=== PATIENT | male | born 1965 | race African-American/Black ===

== ENCOUNTER 2017-12-07 01:40 | Inpatient (IN) | payer OTHER ==
[~2017-12-07] VITALS: Ht 175.3 cm; Wt 73.9 kg
[~2017-12-07 01:40] MED LIST: ASPIRIN EC81 M1 PO; CRESTOR20 M2 PO; DEXAMETHASONE1 M1 PO; DOXYCYCLINE HY100 M2 PO; LANTUS SOL100 UNIT/1 SC; MORPHINE SULFAT15 M4 PO; MORPHINE SULFAT30 M7 PO; NEUPOGEN300 MCG/01 IV; NOVOLOG100 UNIT/2 SC; OXYCODONE HCL5 M1 PO; VALACYCLOVIR500 M1 PO; VITAMIN D31000 UNI2 PO
[2017-12-07 01:59] LABS: HEMATOCRIT 23.8 % (42-52); MEAN CORPUSCULAR HGB CONC 36.3 G/DL (33.0-37.0); MEAN CORPUSCULAR VOLUME 82.8 FL (80.0-94.0); MEAN PLATELET VOLUME 7.5 FL (7.4-10.4); RBC DISTRIBUTION WIDTH 15.2 % (11.5-14.5); RED BLOOD CELL CT 2.87 /CUMM (4.70-6.10)
--- NOTE | 2017-12-07 02:06 | ED GENERAL ADULT ---
History of Present Illness General Chief Complaint: Altered Mental Status Stated Complaint: ALTERED MENTAL STATUS Source: family Exam Limitations: confusion, poor historian Vital Signs & Intake/Output Vital Signs & Intake/Output Vital Signs Date Time Temp Pulse Resp B/P B/P Pulse O2 O2 Flow FiO2 Mean Ox Delivery Rate 12/07 0344 83 20 123/60 99 12/07 0201 98.1 113 22 121/55 98 Room Air Allergies Coded Allergies: oxycodone (Intermediate, CONFUSION, UNEASY 11/13/15) Reconcile Medications Aspirin (Ecotrin*) 81 MG TABLET.DR 1 TAB PO DAILY BLOOD THINNER (Reported) Cholecalciferol (Vitamin D3) 1,000 UNIT TABLET 2 TAB PO DAILY SUPPLEMENT ( Reported) Dexamethasone 1 MG TABLET 20 TAB PO MULTIPLE MYELOMA (Reported) Reason to Stop at ADM: GETS IT friday AND friday ONLY Doxycycline Hyclate 100 MG CAPSULE 1 TAB PO BID ASNAPLASMOSIS TAKE ONE TONIGHT THEN CONTINUE 1 TAB PO BID X 7 DAYS Filgrastim (Neupogen) 300 MCG/0.5 ML SYRINGE 300 MCG IV NEUTROPENIA ( Reported) START ON Friday11/22/15 Insulin Aspart (Novolog) 100 UNIT/1 ML VIAL 5 UNITS SC TIDAC DIABETES ( Reported) Insulin Glargine,Hum.rec.anlog (Lantus Solostar) 100 UNIT/1 ML INSULN.PEN 25 UNIT SC QPM DIABETES (Reported) Reason to Stop at ADM: ON LEVEMIR Morphine Sulfate 30 MG TABLET 1 TAB PO BID PAIN (Reported) Morphine Sulfate 15 MG TABLET 1 TAB PO Q4 PRN BREAKTHROUGH PAIN (Reported) Reason to Stop at ADM: PATIENT HARDLY EVER TAKES IT Oxycodone HCl 5 MG TABLET 1 TAB PO Q6 PRN BREAKTHROUGH PAIN (Reported) Rosuvastatin Calcium (Crestor) 20 MG TABLET 1 TAB PO DAILY CHOLESTEROL ( Reported) Valacyclovir HCl (Valacyclovir) 500 MG TABLET 1 TAB PO BID PROPHYLAXIS ( Reported) Triage Note: PT ARRIVES VIA EMS UNRESPONSIVE "ALTERED PER " PT HX OF MULTIPLE MYELOMA WITH POOR PROGNOSIS, TODAY MUCH LESS ACTIVE SAT ON COUCH ALL DAY AND TONIGHT SLIPPED OFF COUCH, D/T UNRESPONSIVENESS UPON ARRIVAL VSS BUT UNRESPONSIVE TO STERNAL, VERBAL TACTILE STIMULI, BUT DID WITHDRAW WITH EAR PROBE OF THERMOMETER. Triage Nurses Notes Reviewed? yes Onset: Abrupt Duration: hour(s): Timing: recent history HPI: 12/07/17 4:30 AM 52-year-old man with a past medical history of multiple myeloma resents with lethargy. No fever. His says he's been so weak he can't get off the couch. Past History Travel History Traveled to [place] past 21 day No Medical History Any Pertinent Medical History? 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 No Review of Systems Review of Systems Constitutional: Denies: fever. EENTM: Reports: no symptoms. Respiratory: Denies: short of breath. Cardiovascular: Denies: chest pain. GI: Denies: abdominal pain. Genitourinary: Reports: no symptoms. Musculoskeletal: Reports: no symptoms. Skin: Reports: see HPI. Neurological/Psychological: Reports: see HPI. Hematologic/Endocrine: Reports: no symptoms. Physical Exam Physical Exam General Appearance: awake, anxious, severe distress Head: atraumatic, normal appearance Eyes: Bilateral: normal appearance, PERRL, EOMI. Ears, Nose, Throat: normal pharynx, normal ENT inspection Neck: normal inspection, supple Respiratory: normal breath sounds, no respiratory distress Cardiovascular: regular rate/rhythm Peripheral Pulses: 4+ radial (R), 4+ radial (L) Gastrointestinal: non-tender Back: decreased range of motion Extremities: CACHECTIC Neurologic/Psych: awake Skin: DRY Core Measures ACS in differential dx? No CVA/TIA Diagnosis: No Sepsis Present: Yes Sepsis Focused Exam Completed? No Progress Differential Diagnoses I considered the following diagnoses in my evaluation of the patient: [ Dehydration, anemia, sepsis] Plan of Care: Orders Procedure Date/time Status Nothing by Mouth 12/07 B Active Pathway - chart 12/07 624 Active CBC WITHOUT DIFFERENTIAL 12/07 599 Active BASIC ELECTROLYTES PLUS BUN&CR 07/01 0600 Active AMMONIA LEVEL 12/07 0600 Active Add-on Test (ER Only) 12/07 0550 Active LACTIC ACID 12/07 0508 Active Add-on Test (ER Only) 12/07 0506 Active URINE DRUGS OF ABUSE 12/07 0506 Complete Add-on Test (ER Only) 12/07 0459 Active Hemoccult 12/07 0459 Active FingerStick- Glucose 12/07 0459 Active Intake & Output 12/07 0456 Active Admit to inpatient 12/07 0455 Active Patient Data 12/07 0455 Active Vital Signs 12/07 0455 Active Code Status 12/07 0455 Active Add-on Test (ER Only) 12/07 0429 Active Saline Lock 12/07 0208 Active Add-on Test (ER Only) 12/07 0208 Active CULTURE,URINE 12/07 0208 Active BLOOD CULTURE 12/07 0208 Active URINALYSIS 12/07 0208 Complete EKG 12/07 0208 Active PROTHROMBIN TIME 12/07 0150 Complete LACTIC ACID 12/07 0150 Active ETHANOL 12/07 0150 Active D-DIMER 12/07 0150 Complete TROPONIN LEVEL 12/07 0148 Active AMMONIA 12/07 0148 Active COMPREHENSIVE METABOLIC PANEL 12/07 0148 Active CBC WITHOUT DIFFERENTIAL 12/07 0148 Complete TYPE & SCREEN (NOT X-MATCH) 12/07 0148 Active VTE Mechanical Prophylaxis 12/07 UNK Active NIH Stroke Scale 12/07 UNK Active Current Medications Sig/Dev Start time Last Medication Dose Stop Time Status Admin Insulin Human Regular 0 Q6 12/07 1200 UNVr (NovoLIN R) Lactulose 1 BOT Q6 12/07 0646 UNVr (Lactulose Enema (Pom Only)) Sodium Chloride 1,000 ML Q20H 12/07 0630 AC (Normal Saline 0.9%) Laboratory Tests 12/07/17 0620: Lactic Acid Pending 12/07/17 0620: Sodium Pending, Potassium Pending, Chloride Pending, Carbon Dioxide Pending, Anion Gap Pending, BUN Pending, Creatinine Pending, BUN/Creatinine Ratio Pending , Ammonia Pending, CBC w Diff Pending, WBC Pending, RBC Pending, Hgb Pending, Hct Pending, MCV Pending, MCH Pending, MCHC Pending, RDW Pending, Plt Count Pending, MPV Pending, Gran % Pending, Lymphocytes % Pending, Monocytes % Pending , Eosinophils % Pending, Basophils % Pending, Absolute Granulocytes Pending, Absolute Lymphocytes Pending, Absolute Monocytes Pending, Absolute Eosinophils Pending, Absolute Basophils Pending 12/07/17 0545: Urine Opiates Screen > 4000.00 H, Methadone Screen < 40, Barbiturate Screen < 60, Ur Phencyclidine Scrn < 6.00, Amphetamines Screen < 100, U Benzodiazepines Scrn < 85, Urine Cocaine Screen < 50, Urine Cannabis Screen < 5.00, Urinalysis LIGHT H, Urine Color YEL, Urine Clarity CLEAR, Urine pH 7.5, Ur Specific [place] 1.020, Urine Protein 30 H, Urine Ketones 15 H, Urine Nitrite NEG, Urine Bilirubin NEG, Urine Urobilinogen 1.0, Ur Leukocyte Esterase NEG, Ur Microscopic SEDIMENT EXAMINED, Urine RBC 1-3, Urine WBC 1-3 H, Ur Epithelial Cells FEW, Urine Crystals 1+ CA OX H, Urine Bacteria RARE H, Hyaline Casts 1-3 H, Urine Mucus MANY H, Urine Hemoglobin NEG, Urine Glucose NEG 12/07/17 0208: Lactic Acid Cancelled 12/07/17 0150: Anion Gap 11, Estimated GFR > 60, BUN/Creatinine Ratio 12.5, Glucose 210 H, Lactic Acid Pending, Calcium 10.6 H, Total Bilirubin 0.8, AST 15 L, ALT 22, Alkaline Phosphatase 144 H, Ammonia 92 H, Troponin I < 0.01, Total Protein 5.5 L, Albumin 3.3 L, Globulin 2.2, Albumin/Globulin Ratio 1.5, PT 13.3 H, INR 1.22 H, D-Dimer High Sensitivty < 200, CBC w Diff MAN DIFF ORDERED, RBC 2.87 L , MCV 82.8, MCH 30.0, MCHC 36.3, RDW 15.2 H, MPV 7.5, Segmented Neutrophils 55, Band Neutrophils 2, Lymphocytes 38, Monocytes 3, Eosinophils 2, Platelet Estimate DECREASED, Normocytic RBCs VERIFIED, Normochromic RBCs VERIFIED, Poikilocytosis 1+, Serum Alcohol < 10.0 Microbiology 12/08 619 BLOOD: Blood Culture - RECD 12/07 544 URINE ROUT: Urine Culture - RECD 12/07 433 BLOOD: Blood Culture - CAN Cancelled: SPECIMEN NOT RECEIVED - DUPLICATE 07/01 0434 BLOOD: Blood Culture - CAN Cancelled: SPECIMEN NOT RECEIVED - DUPLICATE 12/07 0253 BLOOD: Blood Culture - RECD Initial ED EKG: NSR, nonspecific ST T wave chg Departure Departure Disposition: STILL A PATIENT Condition: Stable Clinical Impression Primary Impression: Pancytopenia Secondary Impressions: Leukopenia, Weakness Referrals: Lexi Aguirre MD (PCP/Family) Departure Forms: Customer Survey General Discharge Information Admission Note Spoke With: Makayla Swann MD Documentation of Exam: Documentation of any treatments & extenuating circumstances including Concerns Regarding Discharge (functional status, medication knowledge or non-compliance, living conditions, etc.) that warrant an admission rather than observation: [The patient needs admission for IV fluids, follow the blood cultures, reverse isolation, consider infectious disease and hematology consults; the patient may need blood transfusion and platelet transfusion] Critical Care Note Critical Care Note Critical Care Time: non-applicable
[2017-12-07 02:31] LABS: PLATELET COUNT 24 /CUMM (130-400); WHITE BLOOD CELL COUNT 1.2 /CUMM (4.8-10.8)
--- NOTE | 2017-12-07 03:00 | CT SCAN REPORT ---
EXAMINATION: CT HEAD WITHOUT CONTRAST CLINICAL INFORMATION: Altered mental status. History of multiple myeloma. COMPARISON: None TECHNIQUE: Contiguous axial imaging was performed from the skull base to vertex without intravenous administration of contrast. DLP: 805.94 mGy-cm FINDINGS: There is motion which limits study. There is no evidence of acute intracranial hemorrhage or territorial infarction. No abnormal mass effect or midline shift is seen. [place] to white matter differentiation is well preserved. No extra-axial fluid collections are identified. The ventricles are normal in size. There is no abnormal attenuation within the brain parenchyma. The left sphenoid sinus is septated with bony bridge. The lateral peripheral air cell is completely opacified. Remainder the paranasal sinuses are normally aerated. There is normal aeration of the mastoid air cells and middle ear cavities. IMPRESSION: 1. No acute intracranial pathology. 2. Opacification of left sphenoid sinus.
--- NOTE | 2017-12-07 03:10 | RADIOLOGY REPORT ---
EXAMINATION: XR PORTABLE CHEST CLINICAL INFORMATION: Weakness. COMPARISON: None TECHNIQUE: Portable frontal view of the chest was obtained. 2:15 AM FINDINGS: Lung volume is low. Projection is apical lordotic. There is asymmetric elevation of right diaphragm compared to left. Allowing for low inspiratory effort there does not appear to be significant pulmonary vascular congestion. No focal consolidation. No pleural effusion. No pneumothorax. Central port catheter tip at caval atrial junction. Multilevel degenerative spondylosis of dorsal spine. Compared to prior chest x-ray November 12, 2015 there has been no change IMPRESSION: No acute abnormality of the chest.
[2017-12-07 05:08] LABS: PT 13.3 SEC (9.4-12.5)
--- NOTE | 2017-12-07 06:03 | History & Physical ---
Desiree Piña MD 12/07/17 0603: General Information and HPI MD Statement: I have seen and personally examined JOMAR DRAKE and documented this H&P. The patient is a 52 year old M who presented with a patient stated chief complaint of altered mental status and general deterioration in patient with multiple myeloma Source of Information: family, old records Exam Limitations: not alert/orientated History of Present Illness: This is a 52-year-old male with a past medical history significant for multiple myeloma diagnosed in 2012 status post multiple treatments, now on Neupogen, Venclexta (venetoclax), Velcade (bortezomib), daratumumab infusion once q3 weeks , GERD, diabetes, history of acute renal failure secondary to multiple myeloma, history of left central retinal vein occlusion status post resolution, that is brought in to see us for complaints of altered mental status that began on Friday, 12/05. [facility] but EMS brought him here as there is apparently no room at the [facility]. Additionally, all history was taken by the patient's , secondary to altered mental status and the patient, who has an extensive memory and knowledge of the patient's past cancer treatments. The patient was last at baseline on Friday. [facility] and RBC transf[facility]. Recently, for the past 3 weeks, the patient has been getting ongoing transfusions, sometimes 2, sometimes 3 times per week. At lowest, his platelets, on Friday, were found to be 5000. Apparently there was discussion about admitting the patient as he was weak and it was thought that he may not make it through his next treatment, but the patient wanted to continue to aggressively treat the multiple myeloma. The patient is supposed to be seen on 12/08 in [place] and at [facility] by his oncologist for experimental drugs/stem cell transplant. Apparently during the patient's Friday transfusions, he began to become altered and "more out of it". After transfusion he was brought to the car in wheelchair and needed to be helped into the car. When he arrived home he was functional but less responsive for the rest the day. At 9 AM on Friday he awoke and laid down on the couch and never got up. The states that during that time he became increasingly altered. Later at night on Friday, he apparently slid off the couch and was completely unresponsive. The notes that he was diaphoretic, did not take official temperature, no chills. The patient was last seen at [facility] in 2015 for altered mental status and fever. For the past several months, the patient has apparently been deteriorating at a greater rate. He has not been responding to his cancer treatments. He has had hyperammonemia secondary to his multiple myeloma. His last ammonia level was 93 on 12/05. Earlier that week that had been 140. He is seen by Dr. Love at [facility] who is a multiple myeloma specialist and Dr. Ta at the [facility], oncologist. Patient last had a PET scan in July which showed widespread lesions in the hip, spine, femurs, humerus, skull. In November of the previous year his PET scan was clear. Currently the patient is on Neupogen, Venclexta (venetoclax), Velcade (bortezomib), daratumumab infusion once q3 weeks, started 3 months ago. He had his last infusion 2 weeks ago. The patient was on Palmolist that was also started 3 months ago but because his blood counts began to decrease, this drug was stopped. The patient takes Venclexta off label, found to help patient's with certain gene translocations in MM. It is noted that pain clinic staff can cause tumor lysis syndrome. The patient has been on it and Velcade for 3 weeks. They were started during his last hospitalization at the [facility] 3 weeks ago. He was inpatient for 2 weeks' time. The patient has loss and total about 30 pounds in the past few months. The patient has been on multiple cancer treatment regimens for his multiple myeloma over the years. He has had autologous hematopoietic stem cell transplant, was on chemo (lenalidomide, cytoxan+bortezomib, carfilxomib+dexameth ), w/ regular injections of neupogen. At one point the patient was on Revlimid which cause pulmonary embolism 3 years ago. That drug was subsequently stopped and the patient was put on Lovenox which was also stopped 2 months ago for uncontrolled bleed at the port site. The patient has had no other episodes of excessive bleeding, no GI bleeding noted. The patient does have a history of 2 episodes of acute renal failure secondary to the multiple myeloma, at one point this past September with a creatinine of 27 that required rounds of dialysis. He again had another episode with a creatinine of 8 but did not require dialysis. Currently he has no evidence of kidney failure. The patient's denies any nausea, vomiting, diarrhea, constipation, abdominal pain, dysuria complaints, cough, complaints of headache, recent bleed. His last bowel movement was on 12/05. The patient has widespread pain. He is on high doses of narcotics, notes that lidocaine patch never helped. The patient's also states that he has not been swallowing well recently. The patient's denies any recent broken bones. He was recently prescribed a cane for ambulation but as yet has not started using it. The is also noted that the patient has had dark yellow urine. She states that she has been trying to help him drink but that he has not been drinking sufficiently for about 3 days now. In the ED, the patient required assist of 2 to get up, initially he was completely unresponsive to sternal, verbal, tactile stimuli other than withdrawing to placement of the ear probe. The patient's last CT scan with us showed no abnormalities with the liver. Allergies/Medications Allergies: Coded Allergies: oxycodone (Intermediate, CONFUSION, UNEASY 11/13/15) Home Med list Aspirin (Ecotrin*) 81 MG TABLET.DR 1 TAB PO DAILY BLOOD THINNER (Reported) Cholecalciferol (Vitamin D3) 1,000 UNIT TABLET 2 TAB PO DAILY SUPPLEMENT ( Reported) Dexamethasone 1 MG TABLET 20 TAB PO MULTIPLE MYELOMA (Reported) Reason to Stop at ADM: GETS IT friday AND friday ONLY Doxycycline Hyclate 100 MG CAPSULE 1 TAB PO BID ASNAPLASMOSIS TAKE ONE TONIGHT THEN CONTINUE 1 TAB PO BID X 7 DAYS Filgrastim (Neupogen) 300 MCG/0.5 ML SYRINGE 300 MCG IV FRI/FRI NEUTROPENIA ( Reported) START ON Friday11/22/15 Insulin Aspart (Novolog) 100 UNIT/1 ML VIAL 5 UNITS SC TIDAC DIABETES ( Reported) Insulin Glargine,Hum.rec.anlog (Lantus Solostar) 100 UNIT/1 ML INSULN.PEN 25 UNIT SC QPM DIABETES (Reported) Reason to Stop at ADM: ON LEVEMIR Morphine Sulfate 30 MG TABLET 1 TAB PO BID PAIN (Reported) Morphine Sulfate 15 MG TABLET 1 TAB PO Q4 PRN BREAKTHROUGH PAIN (Reported) Reason to Stop at ADM: PATIENT HARDLY EVER TAKES IT Oxycodone HCl 5 MG TABLET 1 TAB PO Q6 PRN BREAKTHROUGH PAIN (Reported) Rosuvastatin Calcium (Crestor) 20 MG TABLET 1 TAB PO DAILY CHOLESTEROL ( Reported) Valacyclovir HCl (Valacyclovir) 500 MG TABLET 1 TAB PO BID PROPHYLAXIS ( Reported) Compliance With Home Meds: GOOD Past History Travel History Traveled to [place] past 21 day No Medical History Neurological: NONE EENT: SEASONAL ALLERGIES Cardiovascular: NONE Respiratory: NONE Gastrointestinal: upper GI bleed, ACID REFLUX Hepatic: NONE Renal: KIDNEY FAILURE Musculoskeletal: NONE Psychiatric: NONE Endocrine: diabetes Blood Disorders: multiple myeloma Cancer(s): 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 Ambulation: independent IADLs Independent: shopping, housework, finances, food prep, telephone, transportation , medication admin. Review of Systems Review of Systems Constitutional: Reports: diaphoresis, malaise, weakness. EENTM: Reports: no symptoms. Cardiovascular: Reports: no symptoms. Respiratory: Reports: no symptoms. GI: Reports: no symptoms. Genitourinary: Reports: no symptoms. Musculoskeletal: Reports: back pain, joint pain, muscle pain, muscle stiffness, neck pain. Skin: Reports: no symptoms. Neurological/Psychological: Reports: confusion. Hematologic/Endocrine: Reports: no symptoms. Immunologic/Allergic: Reports: no symptoms. Exam & Diagnostic Data Last 24 Hrs of Vital Signs/I&O Vital Signs Date Time Temp Pulse Resp B/P B/P Pulse O2 O2 Flow FiO2 Mean Ox Delivery Rate 12/07 0650 98.1 90 20 128/56 98 Room Air 12/07 0344 83 20 123/60 99 12/07 0201 98.1 113 22 121/55 98 Room Air Intake & Output 12/07 0800 12/07 0000 12/06 1600 Intake Total Output Total 200 Balance -200 Output, Urine 200 Physical Exam General Appearance Mild Distress Skin No Rashes, No Breakdown, No Significant Lesion Skin Temp/Moisture Exam: Warm/Dry Sepsis Skin Exam (color): Normal for Ethnicity HEENT Atraumatic, PERRLA, EOMI Neck Supple, No JVD Cardiovascular Normal S1, Normal S2, No Murmurs, tachycardic Lungs Clear to Auscultation, Normal Air Movement Abdomen Normal Bowel Sounds, Soft, No Hepatospenomegaly, No Masses, tenderness in right lower quadrant Extremities No Clubbing, No Cyanosis, No Edema Vascular Normal Pulses, Pulses Symmetrical Sepsis Peripheral Pulse Location: Radial Sepsis Peripheral Pulse Exam: Normal Assessment/Plan Assessment: This is a 52-year-old male with a past medical history significant for multiple myeloma diagnosed in 2012 status post multiple treatments, now on Neupogen, Venclexta (venetoclax), Velcade (bortezomib), daratumumab infusion once q3 weeks , GERD, diabetes, history of acute renal failure secondary to multiple myeloma, history of left central retinal vein occlusion status post resolution, that is brought in to see us for complaints of altered mental status that began on Friday, 12/05. He has a long history of cancer treatments and is seen by a multiple myeloma specialists at [facility] in [place] for stem cell transplant and is supposed to began a new regimen there on Friday. The [facility], receives transfusions and infusion treatments but there is no room for the EMS to take him there overnight. The patient was recently found to have a very low platelet count, gets platelet and red blood cell transfusions often. During the transfusion on Friday was when the patient's altered mental status began and continued until the point he became completely unresponsive and was brought in to see us by ambulance. The patient has been declining more so in the past few weeks, has had extensive weight loss. His ammonia level has been followed as recently as Friday, with a level of 93. According to [facility] records, his old abdominal CT showed no evidence of liver pathology. Patient did have a past history of 2 bouts of acute kidney failure secondary to the multiple myeloma. He has received steroids and dialysis and currently, his renal function is good. In the ED, vitals temperature 98.1, heart rate max 113, respiratory rate max 22, blood pressure 123/60, 95% oxygen saturation on room air. EKG showed normal sinus rhythm at a rate of 102 with a QTC of 440. Labs showed WBC of 1.2 with a baseline of 2-3 in 2016, hemoglobin 8.6 at baseline, platelet count of 24, most recently 5 on 12/05 at the [facility]. Patient has elevated calcium, LFTs are normal except for mildly elevated alkaline phosphatase, ammonia is 92, lactic acid 1.8 UA showed elevated protein and 1+ calcium oxalate crystals with 1-3 hyaline casts. U tox is positive for opiates. INR was found to be 1.22, d-dimer negative, troponin negative. Chest x-ray was clear. CT head showed no acute abnormality except for opacification of the left sphenoid sinus. Assessment -Altered mental status likely secondary to hyperammonemia secondary to the patient's multiple myeloma. Other alternatives include infection. Patient was found to have opacification of the left sphenoid sinus, was not responsive to communicate pain on palpation during interview. Additionally the patient's lactic acid is 1.8. His WBC count is not a reliable indicator of infection. Other possibilities include metastatic disease, the patient does have multiple lesions throughout his bones but negative CT head. He has negative chest x-ray except for the opacification of the left sphenoid sinus. Other possibility is hypercalcemia although symptoms are more common at levels greater than 12, his corrected calcium is under 12. Finally, the patient's pain medications including multiple opiates can cause altered mental status. -History of multiple myeloma currently receiving multiple cancer treatments. Patient is set for treatment at [facility] in [place] on Friday and would need to be stable enough to be able to get to that appointment. -History of diabetes and GERD Plan -Admit patient to general medical floors for evaluation and treatment. -Neutropenic precautions -Start patient on lactulose enema every 6 WV -Began normal saline at a rate of 50 mL per hour. Echocardiogram done 2 years ago showed normal left ventricular ejection fraction and some mild mitral regurgitation. -CT abdomen and pelvis as the patient has right lower quadrant abdominal pain. Additionally I last CT scan of the liver was done 2 years ago and is warranted in a patient with elevated ammonia levels. -Type and screen blood for potential transfusion if needed -Follow up repeat lactic acid -Follow blood and urine cultures -Start patient on sliding scale insulin -Keep patient nothing by mouth for now and order swallow evaluation for reports of his difficulty swallowing recently -Fall precautions -NIH stroke scale for his altered mental status -Consider pain treatment as the patient is on multiple opiate medications that can cause altered mental status themselves. -Nutritional intake monitoring as the patient is recently lost about 30 pounds. Consider nutrition consult. IF deteriorates consider sending to [facility]. If patient gets better and he can likely be discharged and sent to [facility] in [place] for his treatment on Friday. Please let the patient's Staci Antonio know of any and all decisions DVT prophylaxis with Alps only Patient is full code Patient is nothing by mouth As Ranked By This Provider Problem List: 1. Pancytopenia 2. Weakness 3. Multiple myeloma Core Measures/Misc (02/23) Acute Coronary Syndrome ACS Diagnosis: No Congestive Heart Failure Congestive Heart Failure Diagnosis No Cerebrovascular Accident CVA/TIA Diagnosis: No VTE (View Protocol) VTE Risk Factors Acute Medical Illness No Mechanical VTE Prophylaxis d/t N/A MechProphylax Ordered No VTE Pharm Prophylaxis d/t Platelets below ref range Sepsis (View protocol) Sepsis Present: No If YES complete Sepsis Event Note If YES complete Sepsis Event Note Sakshi Hicks 12/07/17 0819: Core Measures/Misc (02/23) Sepsis (View protocol) If YES complete Sepsis Event Note If YES complete Sepsis Event Note Resident Review Statement Other Findings: Patient is 52-year-old male with past medical history of multiple myeloma diagnosed in 2012, has been on multiple treatment regimens for that, type 2 diabetes mellitus, was brought in by with chief complaint of altered mental status. states that patient normally follows care for his multiple myeloma at [facility], and on Tuesday 12/05, patient was found to have platelets of 5000 at [facility] and therefore was given platelet and blood transfusion. As noted by , the patient did have some chills during the transfusion, but she reports that patient always get chills at the time of transfusion. Patient gets blood transfusion every Friday, Friday, Friday depending on his blood count. noticed that he first became altered while getting transfusion. On Friday morning, states that patient was doing well in the morning and had his breakfast, however after that he became more lethargic and slept on the couch the entire day. At night when she tried to get him off the couch, he slipped and fell, thats when they called EMS and came to [facility]. states that patient has been declining more so in past couple of weeks, and has been having high ammonia level which she is told by his oncologist that is due to multiple myeloma. Ammonia level on 12/04/17 was 140 and 12/05/17 was 93. states that for his hyperammonemia, he is normally given lactulose and that helps. Patient follows the oncologist Dr. Ta at [facility] and follows up with Dr. Love in [facility] for multiple myeloma. states that patient was planned to receive an experimental drug on Friday12/08/17 at [facility] because of his worsening multiple myeloma. states that patient had a PET scan in July that shows that his lesions are widespread involving hips, spine, bilateral femur, and on a repeat PET scan in October, some lesions were identified on the skull as well. Most of the history was obtained by as patient continued to be alert and oriented 1 during the interview. states that patient is given Daratumumab and last infusion was 3 weeks ago. Patient was also diagnosed with chronic kidney disease previously, which improved after treatment with prednisone therapy. also added that patient was on blood thinners such as Lovenox, and was discontinued 2 months ago as he started bleeding from the port site. Patients medication list was obtained from the is as follows; Daratumumab- chemo infusion on Friday Infusion pre med_ acetaminophen, 60 minutes before each infusion, 650 mg Diphenhydramine, 60 min before each infusion, 50mg Diphenhydramine, 2 hours after infusion start, 25 mg Methyprednisone, 60 min before each infusion 100 mg, Methyprednisone, 2 hours after infusion start 40 mg. Famotidine, 60 minutes before each infusion. Famotidine, 2 hours after infusion start 20 mg Montelukast, 60 minutes before each infusion , 10 mg Dexamethasone, 60 min before each infusion, 10 mg Dexamethasone-steroid 20 mg on day after hemo (normally Friday). Pomalyst-chemo 4 capsule, 21 days on 7 days off Amlodipine BP 10 mg daily lovenox 120 mg under skin- stopped Nupogen , 480 mcg/0.8ml syringe, Friday and Friday Novolin 5 units, before each meal + SS Insulin glargine 26 units at bedtime every night 54 units on infusion day, normally Friday 54 units on morning of dexamethasone day, normally Friday Cholecalciferol 1000 unit tab, 2 tabs daily Morphine 45 units three 15 mg tabs 2 x daily. Morphine tab 15 mg tab as needed for breaktghrough pain Pravastatin 40 mg tab in evening Labs and vitals as above CXR done on 12/07/17, no pulmonary pathology CAT scan done on 12/07/17, no acute intracranial pathology just opacification of left sphenoid sinus. Assessment and plan Well admit the patient on telemetry floor for closer monitoring, the etiology of his altered mental status is unclear at this point, given the CAT scan was negative for any intracranial pathology, per patient has always had elevated ammonia levels, however for elevated ammonia of 92, will give rectal lactulose and monitor for improvement in mental status. Patient looks dry on physical exam, will give him normal saline at 50 mL per hour. Please obtain records from [facility]. Will recheck labs in morning. Patient is currently not actively bleeding, however will follow-up stool guaiac. If patient is actively bleeding with platelet count less than 50,000, consider transfusion. Will get hem onc consult. Neutropenic precautions. Patient is nothing by mouth following swallowing eval in the morning. DVT ppx ALPS Patient is full code, has the living will and is the conservator. Tamara RIZO,Leatha 12/07/17 0944: Core Measures/Misc (02/23) Sepsis (View protocol) If YES complete Sepsis Event Note If YES complete Sepsis Event Note Attending MD Review Statement Attending Statement Attending MD Statement: examined this patient, discuss w/resident/PA/JOINT FINISHER, agreed w/resident/PA/JOINT FINISHER, discussed with family, reviewed EMR data (avail), discussed with nursing, reviewed images Attending Assessment/Plan: 52-year-old male past medical history of multiple myeloma, the myeloma has been diagnosed more than 4 years ago and the patient has had multiple treatments for the same. The patient and his are well aware that at this point the myeloma is fairly advanced and most of the usual treatment is failing. He is profoundly pancytopenic and goes to the [facility] for regular transfusions. Yesterday he had an episode of unresponsiveness which prompted the to call EMS and because they [facility]'t [facility] he was brought here. I'm not really clear about this episode of unresponsiveness. When I talked to him - he is able to answer back and he answers back appropriately. He nods his head and can clearly make his wishes known. However he is extremely slow, talks slowly and takes a long time with what appears to be to comprehend. At this point there is no obvious source of infection. He doesn't have an anion gap acidosis, there is no lactic acidosis, he is neutropenic but his dry CT of his abdomen is negative and his chest x-ray is negative. He is pancytopenic and his platelet count is 24,000 but there is no active evidence of bleeding. Because of the episode of unresponsiveness and the mild tachycardia think he should be monitored on telemetry just to make sure there was no cardiac event. We'll also call a formal hematology consult the question is does he need any platelet transfusions at this point. I'm unclear as to why he is getting ammonia. His says that usually when he gets this unresponsive his oncologist at the [facility] suggests lactulose to decrease some of his ammonia which typically works. I had a very long conversation with the patient and his . He is clearly a full code and they want to pursue CPR and intubation in the event of patient deteriorating. Patient has this appointment with the [facility] oncologist Dr. Love on Friday at 9:30 in the morning. This appointment is for admission for some kind of experimental/salvage chemotherapy. I explained clearly that it will not be feasible for me to orchestrate an Interstate transfer to [facility] in [facility] for 9:30 in the morning. Logistically it'll take more time, not to mention the system issues. The patient is clear that he wants to keep this appointment. At this point the alternative he feels is and giving up and he has all his hope pinned on this experimental treatment. The patient's and he planned to sign out AMA today this evening around 7:30-8pm in the evening as they've already made plans to drive to [facility], stay over there , to be evaluated first thing in the morning. They understand all the risks of signing out and I was explicitly clear about infection, life-threatening bleed and likely . The patient does understand all of this and he was able to clearly express to me that he still wishes to sign out later tonight to pursue this treatment in [facility].
[2017-12-07 06:36] LABS: HEMATOCRIT 23.5 % (42-52); MEAN CORPUSCULAR HGB 29.8 PG (27.0-31.0); MEAN CORPUSCULAR HGB CONC 35.7 G/DL (33.0-37.0); MEAN CORPUSCULAR VOLUME 83.4 FL (80.0-94.0); MEAN PLATELET VOLUME 8.9 FL (7.4-10.4); RBC DISTRIBUTION WIDTH 14.4 % (11.5-14.5); RED BLOOD CELL CT 2.82 /CUMM (4.70-6.10)
[2017-12-07 07:09] LABS: PLATELET COUNT 24 /CUMM (130-400)
[2017-12-07 07:10] LABS: WHITE BLOOD CELL COUNT 0.9 /CUMM (4.8-10.8)
[2017-12-07 07:52] VITALS: BP 138/58
--- NOTE | 2017-12-07 08:40 | CT SCAN REPORT ---
EXAMINATION: CT ABDOMEN AND PELVIS WITHOUT CONTRAST CLINICAL INFORMATION: Pain on physical exam. Assess for abdominal pathology. COMPARISON: CT chest, abdomen, and pelvis 11/11/2015. TECHNIQUE: Multidetector volumetric imaging was performed from the superior aspect of the liver through the pubic symphysis. Sagittal and coronal reformatted images were obtained on the technologist's workstation. No oral or intravenous contrast. DLP: 312 mGy-cm FINDINGS: LUNG BASES: Subpleural scar left lateral base similar to prior study 2016. No airspace consolidation or effusion. LIVER, GALLBLADDER, AND BILIARY TREE: The liver is normal in size, shape, and attenuation. No focal hepatic lesion or biliary ductal dilatation is present. The gallbladder is unremarkable with no evidence of radiopaque gallstones, gallbladder wall thickening, or obvious pericholecystic inflammatory changes. PANCREAS: Unremarkable. SPLEEN: The spleen is normal in size measuring 12.6 cm compared with prior measurement 14.8 cm. Spleen is homogeneous. ADRENAL GLANDS: Unremarkable. KIDNEYS AND URETERS: The kidneys are normal in size, shape, and attenuation. No hydronephrosis, hydroureter, or calculi seen. No perinephric stranding. BLADDER: Unremarkable. GASTROINTESTINAL TRACT: The small and large bowel are unremarkable. The appendix is unremarkable. No ascites or fluid collection. ABDOMINAL WALL: The bilateral anterior abdominal wall subcutaneous soft tissues show scattered hazy increased attenuation. There are also scattered round nodular foci in the anterior subcutaneous soft tissues ranging in size from 5 -12 mm, 26 HU attenuation, and blurry margins. Many of these are just beneath the skin and may be related to subcutaneous injections. Clinically correlate. LYMPH NODES: No lymphadenopathy. VASCULAR: Unremarkable. PELVIC VISCERA: Unremarkable. OSSEOUS STRUCTURES: Unremarkable. IMPRESSION: 1. Bilateral anterior abdominal subcutaneous soft tissue show hazy increased attenuation and scattered nodular foci 5 there is 12 mm, possibly related to multiple subcutaneous injections. Clinically correlate. 2. No ductal dilatation, hydronephrosis, or bowel inflammatory changes. 3. Mild splenomegaly on prior study 2016 has resolved, now measuring 12.6 cm. No lymphadenopathy.
--- NOTE | 2017-12-07 09:32 | Admission Certification ---
Admission Certification Certification Statement - As attending physician, I certify that at the time of - admission, based on clinical presentation, severity of - symptoms, need for further diagnostic testing and - therapeutic interventions, and risk of adverse outcomes - without in-hospital treatment, in my clinical assessment, - this patient requires an acute hospital stay for a minimum - of two nights or longer. I have also considered psychsocial - factors such as support system, advanced age, financial - issues, cognitive issues, and failed out-patient treatments, - past re-admission history, safety of patient, and lack of - compliance as applicable. Specific rationale supporting this admission is: Multiple myeloma with pancytopenia here with an episode of unresponsiveness, neutropenia and altered mentation.
[2017-12-07 10:57] VITALS: BP 120/56
--- NOTE | 2017-12-07 12:43 | Patient Discharge Instructions ---
Discharge Instructions General Discharge Information You were seen/treated for: Altered mental status You had these procedures: none Special Instructions: Follow-up with PCP and oncologist after discharge. Diet Continue normal diet: Yes Activity Activity Self Limited: Yes Acute Coronary Syndrome Inclusion Criteria At DC or during hospital stay patient has or had the following: ACS DIAGNOSIS No Discharge Core Measures Meds if any: Prescribed or Continued at Discharge Meds if any: NOT Prescribed or Continued at Discharge Congestive Heart Failure Inclusion Criteria At DC or during hospital stay patient has or had the following: CHF DIAGNOSIS No Discharge Core Measures Meds if any: Prescribed or Continued at Discharge Meds if any: NOT Prescribed or Continued at Discharge Cerebrovascular accident Inclusion Criteria At DC or during hospital stay patient has or had the following: CVA/TIA Diagnosis No Discharge Core Measures Meds if any: Prescribed or Continued at Discharge Meds if any: NOT Prescribed or Continued at Discharge Venous thromboembolism Inclusion Criteria VTE Diagnosis No VTE Type NONE VTE Confirmed by (Test) NONE Discharge Core Measures - Per Current guidelines, there needs to be overlap - treatment for the first 5 days of Warfarin therapy. - If discharged on Warfarin prior to 5 days of - overlap therapy, the patient will need to be - assessed for post discharge needs including - *Post discharge parental anticoagulation - *Warfarin and/or parental anticoagulation education - *Follow up date to check INR post discharge At least 5 days overlap therapy as Inpatient Yes Meds if any: Prescribed or Continued at Discharge Note: Overlap Therapy is Warfarin and Anticoagulant Meds if any: NOT Prescribed or Continued at Discharge
[2017-12-07 14:55] VITALS: BP 122/62
--- NOTE | 2017-12-08 15:20 | Discharge Summary ---
Hospital Course Allergies: Coded Allergies: oxycodone (Intermediate, CONFUSION, UNEASY 11/13/15) Discharge Instructions Medications at Discharge Discharge Medications: Continue taking these medications: Insulin Aspart (Novolog) 100 UNIT/1 ML VIAL 5 Units Inject into fatty tissue 3 TIMES DAILY BEFORE MEALS Comments: Last Taken: 12/07/17 Time: 1:10 PM Insulin Glargine,Hum.rec.anlog (Lantus Solostar) 100 UNIT/1 ML INSULN.PEN 25 Unit Inject into fatty tissue Every night Instructions: Reason to Stop at ADM: ON EMIR Comments: Last Taken: Time: NOT GIVNE IN HOSPITAL Aspirin (Ecotrin*) 81 MG TABLET.DR 1 Tablet ORAL DAILY Comments: Last Taken: Time:NOT GIVEN IN HOSPITAL Cholecalciferol (Vitamin D3) 1,000 UNIT TABLET 2 Tablet ORAL DAILY Comments: Last Taken: Time:NOT GIVEN HOSPITAL Valacyclovir HCl (Valacyclovir) 500 MG TABLET 1 Tablet ORAL TWICE DAILY Comments: Last Taken: Time: NOT GIVEN IN HOSPITAL Morphine Sulfate (Morphine Sulfate) 30 MG TABLET 1 Tablet ORAL TWICE DAILY Comments: Last Taken: Time: NOT GIVEN IN HOSPITAL Morphine Sulfate (Morphine Sulfate) 15 MG TABLET 1 Tablet ORAL Every 4 hours as needed for BREAKTHROUGH PAIN Instructions: Reason to Stop at ADM: PATIENT HARDLY EVER TAKES IT Comments: Last Taken: Time: NOT GIVEN IN HOSPITAL Oxycodone HCl (Oxycodone HCl) 5 MG TABLET 1 Tablet ORAL EVERY SIX HOURS as needed for BREAKTHROUGH PAIN Comments: Last Taken: Time: NOT GIVEN IN HOSPITAL Rosuvastatin Calcium (Crestor) 20 MG TABLET 1 Tablet ORAL DAILY Comments: Last Taken: Time: NOT GIVEN IN HOSPITAL Dexamethasone (Dexamethasone) 1 MG TABLET 20 Tablet ORAL Instructions: Reason to Stop at ADM: GETS IT friday AND friday ONLY Comments: Last Taken: Time:NOT GIVEN IN HOSPITAL Filgrastim (Neupogen) 300 MCG/0.5 ML SYRINGE 300 Microgram INTRAVEN FRI/FRI Instructions: START ON Friday11/22/15 Comments: Last Taken: Time: NOT GIVEN IN HOSPITAL acidosis. Allergies: Coded Allergies: oxycodone (Intermediate, CONFUSION, UNEASY 11/13/15) Discharge Instructions Medications at Discharge Discharge Medications: Continue taking these medications: Insulin Aspart (Novolog) 100 UNIT/1 ML VIAL 5 Units Inject into fatty tissue 3 TIMES DAILY BEFORE MEALS Comments: Last Taken: 12/07/17 Time: 1:10 PM Insulin Glargine,Hum.rec.anlog (Lantus Solostar) 100 UNIT/1 ML INSULN.PEN 25 Unit Inject into fatty tissue Every night Instructions: Reason to Stop at ADM: ON LEVEMIR Comments: Last Taken: Time: NOT GIVNE IN HOSPITAL Aspirin (Ecotrin*) 81 MG TABLET.DR 1 Tablet ORAL DAILY Comments: Last Taken: Time:NOT GIVEN IN HOSPITAL Cholecalciferol (Vitamin D3) 1,000 UNIT TABLET 2 Tablet ORAL DAILY Comments: Last Taken: Time:NOT GIVEN HOSPITAL Valacyclovir HCl (Valacyclovir) 500 MG TABLET 1 Tablet ORAL TWICE DAILY Comments: Last Taken: Time: NOT GIVEN IN HOSPITAL Morphine Sulfate (Morphine Sulfate) 30 MG TABLET 1 Tablet ORAL TWICE DAILY Comments: Last Taken: Time: NOT GIVEN IN HOSPITAL Morphine Sulfate (Morphine Sulfate) 15 MG TABLET 1 Tablet ORAL Every 4 hours as needed for BREAKTHROUGH PAIN Instructions: Reason to Stop at ADM: PATIENT HARDLY EVER TAKES IT Comments: Last Taken: Time: NOT GIVEN IN HOSPITAL Oxycodone HCl (Oxycodone HCl) 5 MG TABLET 1 Tablet ORAL EVERY SIX HOURS as needed for BREAKTHROUGH PAIN Comments: Last Taken: Time: NOT GIVEN IN HOSPITAL Rosuvastatin Calcium (Crestor) 20 MG TABLET 1 Tablet ORAL DAILY Comments: Last Taken: Time: NOT GIVEN IN HOSPITAL Dexamethasone (Dexamethasone) 1 MG TABLET 20 Tablet ORAL Instructions: Reason to Stop at ADM: GETS IT friday AND friday ONLY Comments: Last Taken: Time:NOT GIVEN IN HOSPITAL Filgrastim (Neupogen) 300 MCG/0.5 ML SYRINGE 300 Microgram INTRAVEN FRI/FRI Instructions: START ON Friday11/22/15 Comments: Last Taken: Time: NOT GIVEN IN HOSPITAL
--- NOTE | 2017-12-09 16:19 | Discharge Summary ---
Visit Information Visit Dates Admission Date: 12/07/17 Discharge Date: 12/07/17 Hospital Course Course Attending Physician: Magdalena Villa MD Primary Care Physician: Timothy RIZO,[place] Hospital Course: The patient is a 52-year-old male with past medical history significant for multiple myeloma which was diagnosed in 2012. His reported that he has had multiple treatments and at this point myeloma is fairly advanced and most of the usual treatment has been exhausted. He is currently on Epogen Venclexta ( venetoclax), Velcade (bortezomib), daratumumab infusion once q3 weeks. Patient had an episode of unresponsiveness yesterday prompting his to call EMS. Vitals on presentation tachycardic up to 113 rest WNL Admission labs were significant for pancytopenia with WBC count of 1.2 H/H 01/29, platelet count 24, glucose 210 ammonia level 92, TSH 0.436 WNL , T4 2.5 low Imagieng findings negative Patient was initially admitted to general medicine floor for treatment and evaluation of altered mental status. On our evaluation patient was answering back appropriately though his reaction time was longer and was talking slowly. Patient was started on lactulose. There was no obvious source of infection although the patient was neutropenic; there is no lactic acidosis, he was afebrile and imaging findings were negative including both chest x-ray and CT scan of abdomen. Blood cultures were drawn which remained negative to date. He was thrombocytopenic with no active evidence of bleeding. We decided to proceed with hematology consult for further guidance regarding platelet transfusion. The cause of high ammonia level remains unclear. There is no infectious source, his LFTs are within normal limits, no liver pathology on CT, renal functions are also within normal limits. Most likely explanation would be cancer or chemotherapy?. Per patient's the oncologist at [facility] suggested to take lactulose which usually brings his ammonia level down. Patient was transferred from general medicine floor to telemetry floor since there was an episode of unresponsiveness in question and he was tachycardic on admission. After being transferred to the telemetry floor patient left AMA because he had an appointment with [place] oncologist Jaun on Friday 9:30 AM for experimental/salvage chemotherapy. At this point patient's hopes are pinned on this experimental treatment and he signed out AGAINST MEDICAL ADVICE around 8 PM in the evening with plans to drive to [place] to be evaluated for the treatment. Patient had capacity to make his decisions. The risks of leaving were clearly explained to him which included infection, life-threatening bleeding, . Patient was full code during his stay and he clearly expressed his wishes regarding that. All of his home medications were continued on discharge Allergies: Coded Allergies: oxycodone (Intermediate, CONFUSION, UNEASY 11/13/15) Disposition Summary Disposition Principal Diagnosis: Hyperammonemia Additional Diagnosis: Multiple myeloma Discharge Disposition: left against medical adv Discharge Instructions General Discharge Information Code Status: Full Code Patient's Diet: As tolerated Patient's Activity: As tolerated Follow-Up Instructions/Appts: Follow-up with primary care doctor and oncologist Medications at Discharge Discharge Medications: Continue taking these medications: Insulin Aspart (Novolog) 100 UNIT/1 ML VIAL 5 Units Inject into fatty tissue 3 TIMES DAILY BEFORE MEALS Comments: Last Taken: 12/07/17 Time: 1:10 PM Insulin Glargine,Hum.rec.anlog (Lantus Solostar) 100 UNIT/1 ML INSULN.PEN 25 Unit Inject into fatty tissue Every night Instructions: Reason to Stop at ADM: ON LEVEMIR Comments: Last Taken: Time: NOT GIVNE IN HOSPITAL Aspirin (Ecotrin*) 81 MG TABLET.DR 1 Tablet ORAL DAILY Comments: Last Taken: Time:NOT GIVEN IN HOSPITAL Cholecalciferol (Vitamin D3) 1,000 UNIT TABLET 2 Tablet ORAL DAILY Comments: Last Taken: Time:NOT GIVEN HOSPITAL Valacyclovir HCl (Valacyclovir) 500 MG TABLET 1 Tablet ORAL TWICE DAILY Comments: Last Taken: Time: NOT GIVEN IN HOSPITAL Morphine Sulfate (Morphine Sulfate) 30 MG TABLET 1 Tablet ORAL TWICE DAILY Comments: Last Taken: Time: NOT GIVEN IN HOSPITAL Morphine Sulfate (Morphine Sulfate) 15 MG TABLET 1 Tablet ORAL Every 4 hours as needed for BREAKTHROUGH PAIN Instructions: Reason to Stop at ADM: PATIENT HARDLY EVER TAKES IT Comments: Last Taken: Time: NOT GIVEN IN HOSPITAL Oxycodone HCl (Oxycodone HCl) 5 MG TABLET 1 Tablet ORAL EVERY SIX HOURS as needed for BREAKTHROUGH PAIN Comments: Last Taken: Time: NOT GIVEN IN HOSPITAL Rosuvastatin Calcium (Crestor) 20 MG TABLET 1 Tablet ORAL DAILY Comments: Last Taken: Time: NOT GIVEN IN HOSPITAL Dexamethasone (Dexamethasone) 1 MG TABLET 20 Tablet ORAL Instructions: Reason to Stop at ADM: GETS IT friday AND friday ONLY Comments: Last Taken: Time:NOT GIVEN IN HOSPITAL Filgrastim (Neupogen) 300 MCG/0.5 ML SYRINGE 300 Microgram INTRAVEN FRI/FRI Instructions: START ON Friday11/22/15 Comments: Last Taken: Time: NOT GIVEN IN HOSPITAL Copies To: Timothy RIZO,Lexi Attending MD Review Statement Documenting Attending: Leatha Mcdonald MD
== END 2017-12-07 17:40 | disposition left against medical advice (07) | DRG 642 ==
LOC: ERH 01:40 → 1NO 04:55 → ERHI 04:55 → ENRESERV 06:43 → ENTRNSPT 07:12 → EDTRNSPTSTS 07:20 → EDTRNSPT 07:20 → 2NA 07:41 → CMPTRNSPT 07:54 → ENTRNSPT 09:27 → EDTRNSPTSTS 10:02 → EDTRNSPT 10:02 → 1NO 10:16 → CMPTRNSPT 10:23 → 1NO 17:40
PROVIDERS: Emergency Medicine; Internal Medicine
DX: E72.20 Disorder of urea cycle metabolism, unspecified (principal); C90.00 Multiple myeloma not having achieved remission; D61.818 Other pancytopenia; D70.9 Neutropenia, unspecified; K21.9 Gastro-esophageal reflux disease without esophagitis; E11.9 Type 2 diabetes mellitus without complications; Z88.5 Allergy status to narcotic agent; Z79.4 Long term (current) use of insulin
CPT/HCPCS: 1NP; 71045; 74176; 80307; 81001; 82436; 87040; 87086; 87147; 93005; 93010; G0480; J1815